=== PATIENT | male | born 1985 | race Caucasian/White ===

== ENCOUNTER 2017-08-06 13:53 | Emergency (ER) | payer OTHER ==
[~2017-08-06] VITALS: Ht 182.9 cm; Wt 83.6 kg
[2017-08-06 13:55] VITALS: BP 122/77
[2017-08-06] MEDS ORDERED: LIDOCAINE-MPF 1%, 5ML INFIL ONE (15:00)
== END 2017-08-06 16:48 | disposition home or self-care (01) ==
LOC: ED 16:42
DX: S61.215A Laceration without foreign body of left ring finger without damage to nail, initial encounter (principal); S61.213A Laceration without foreign body of left middle finger without damage to nail, initial encounter; X58.XXXA Exposure to other specified factors, initial encounter; Y93.89 Activity, other specified; Y92.89 Other specified places as the place of occurrence of the external cause; Y99.8 Other external cause status
CPT/HCPCS: 12001; 99283

== ENCOUNTER 2017-12-27 00:16 | Emergency (ER) | payer SELFPAY ==
[~2017-12-27] VITALS: Ht 188 cm; Wt 84.8 kg
[2017-12-27 00:19] VITALS: BP 127/90
[2017-12-27] MEDS ORDERED: HYDROcodone/APAP 5/325 TABLET PO STA (00:29)
[2017-12-27] MEDS ORDERED: HYDROcodone/APAP 5/325 TABLET ONE (00:38)
== END 2017-12-27 00:43 | disposition home or self-care (01) ==
LOC: ED 00:37
DX: K08.89 Other specified disorders of teeth and supporting structures (principal)
CPT/HCPCS: 99283

== ENCOUNTER 2018-01-17 18:17 | Emergency (ER) | payer SELFPAY ==
[~2018-01-17] VITALS: Ht 185.4 cm; Wt 84.0 kg
[2018-01-17 18:34] VITALS: BP 115/82
== END 2018-01-17 19:33 | disposition home or self-care (01) ==
LOC: ED 19:27
DX: J06.9 Acute upper respiratory infection, unspecified (principal); F17.210 Nicotine dependence, cigarettes, uncomplicated
CPT/HCPCS: 93005; 99283

== ENCOUNTER 2021-01-01 04:50 | Emergency (ER) | payer OTHER ==
[~2021-01-01] VITALS: Ht 188 cm; Wt 90.4 kg
[2021-01-01 04:52] VITALS: BP 121/89
--- NOTE | 2021-01-01 06:51 | NUR ---
Report given to SHENG Barrera
== END 2021-01-01 07:42 | disposition home or self-care (01) ==
LOC: ED 05:59
DX: S02.31XA Fracture of orbital floor, right side, initial encounter for closed fracture (principal); S02.2XXA Fracture of nasal bones, initial encounter for closed fracture; X58.XXXA Exposure to other specified factors, initial encounter; Y93.89 Activity, other specified; Y92.410 Unspecified street and highway as the place of occurrence of the external cause; Y99.8 Other external cause status
CPT/HCPCS: 70486; 99284